=== PATIENT | female | born 1950 | race Caucasian/White ===

== ENCOUNTER 2018-07-04 11:08 | Outpatient (REF) | payer MEDICARE, OTHER, SELFPAY ==
[2018-07-04 12:36] LABS: HCT 44.5 % (36.0-46.0); HGB 14.8 g/dL (12.0-15.5); Mean Corp. HGB Concentration 33.3 g/dL (32.0-36.0); Mean Corpuscular Hemoglobin 30.1 pg (27.0-33.0); Mean Corpuscular Volume 90.4 fL (80-95); Mean Platelet Volume 9.1 fL (8.0-11.0); Platelet Count 296 x1000/uL (130-400); RBC 4.92 m/cumm (4.00-5.20); RBC Distribution Width 13.4 % (11.7-14.6); White Blood Cell Count 5.98 k/cumm (4.4-10.8)
[2018-07-04 13:11] LABS: Hemoglobin A1C 5.7 % (4.5-6.2)
[2018-07-04 13:38] LABS: ALT 25 U/L (12-78); AST 16 U/L (15-37); Albumin 3.9 g/dL (3.4-5.0); Alkaline Phosphatase 89 U/L (46-116); Anion Gap 8.6 mmol/L (3-11); BUN 14 mg/dL (7-18); CO2 28.4 mmol/L (21.0-32.0); CREATININE 0.63 mg/dL (0.55-1.02); Calcium 8.9 mg/dL (8.5-10.1); Chloride 106 mmol/L (98-107); Cholesterol 148 mg/dL (50-200); Glucose 101 mg/dL (70-100); HDL Cholesterol 63 mg/dL (40-60); LDL CHOLESTEROL 76 mg/dL (<100); Sodium 143 mmol/L (136-145); Total Protein 6.7 g/dL (6.4-8.2); Triglyceride 56 mg/dL (30-150); Vitamin B12 415 pg/mL (193-986)
== END 2018-07-04 11:28 ==
LOC: NCHCN 11:08
PROVIDERS: PCP Nurse Practitioner Family; Visit Provider Family Medicine
DX: R73.9 Hyperglycemia, unspecified (principal); K21.9 Gastro-esophageal reflux disease without esophagitis; E55.9 Vitamin D deficiency, unspecified; E78.5 Hyperlipidemia, unspecified
CPT/HCPCS: 80053; 80061; 83721; 85027; 82607; 83036

== ENCOUNTER 2018-07-12 00:51 | Outpatient (CLI) | payer MEDICARE, OTHER, SELFPAY ==
--- NOTE | 2018-07-12 11:15 | DI.MAMMO_ITS ---
SYMPTOMS/DIAGNOSIS: SCREENING, Z12.31 MAMMOGRAM: Mammograms were interpreted according to the usual protocol including computer analysis with CAD system, tomosynthesis and C view imaging. The breasts are of moderate density with fairly symmetrical distribution of fibroglandular tissue. No dominant mass or clumped microcalcification is identified in either breast. Current examination is compared with the previous examinations including April 2016 and there has been no gross interval change in appearance in comparison with the previous studies. CONCLUSION: No specific evidence of malignancy at this time. Routine screening examinations are suggested at yearly intervals in this age group according to the ACS/ACR guidelines. Category 1, breast density category B. MQSA ASSESSMENT OF FINDINGS: Negative. Category 1. Patient will receive a letter notifying them of these results. BI-RADS category B. There are scattered areas of fibroglandular density.
== END 2018-07-12 01:11 ==
PROVIDERS: PCP Nurse Practitioner Family; Visit Provider Family Medicine
DX: Z12.31 Encounter for screening mammogram for malignant neoplasm of breast (principal)
CPT/HCPCS: 77063; 77067

== ENCOUNTER 2019-05-15 10:55 | Outpatient (REF) | payer MEDICARE, OTHER, SELFPAY ==
[2019-05-15 13:22] LABS: ALT 28 U/L (14-59); AST 16 U/L (15-37); Albumin 3.8 g/dL (3.4-5.0); Alkaline Phosphatase 94 U/L (46-116); Anion Gap 11.1 mmol/L (3-11); BUN 15 mg/dL (7-18); Bilirubin, Total 1.1 mg/dL (0.2-1.0); CO2 24.9 mmol/L (21.0-32.0); CREATININE 0.64 mg/dL (0.55-1.02); Calcium 8.8 mg/dL (8.5-10.1); Calculated LDL 71 mg/dL; Chloride 108 mmol/L (98-107); Cholesterol 153 mg/dL (50-200); Glucose 107 mg/dL (70-100); HDL Cholesterol 66 mg/dL (40-60); Potassium 4.3 mmol/L (3.5-5.1); Sodium 144 mmol/L (136-145); Total Protein 6.7 g/dL (6.4-8.2); Triglyceride 80 mg/dL (30-150)
[2019-05-15 14:31] LABS: Hemoglobin A1C 5.9 % (4.5-6.2)
== END 2019-05-15 11:15 ==
LOC: NCHCN 10:55
PROVIDERS: PCP Nurse Practitioner Family; Visit Provider Family Medicine
DX: E78.5 Hyperlipidemia, unspecified (principal); R73.9 Hyperglycemia, unspecified; M85.80 Other specified disorders of bone density and structure, unspecified site
CPT/HCPCS: 80053; 80061; 83036

== ENCOUNTER 2020-02-06 09:44 | Outpatient (REF) | payer MEDICARE, OTHER, SELFPAY ==
[2020-02-06 21:40] LABS: Glucose 115 mg/dL (74-106)
[2020-02-06 21:50] LABS: Hemoglobin A1C 5.8 % (3.8-5.6)
[2020-02-08 04:55] LABS: Vitamin D 25 Total 74.5 ng/ml (30-100)
== END 2020-02-06 10:04 ==
LOC: NCHCN 09:44
PROVIDERS: PCP Nurse Practitioner Family; Visit Provider Family Medicine
DX: R73.03 Prediabetes (principal); E55.9 Vitamin D deficiency, unspecified
CPT/HCPCS: 82306; 82947; 83036

== ENCOUNTER 2020-02-12 00:45 | Outpatient (CLI) | payer MEDICARE, OTHER, SELFPAY ==
--- NOTE | 2020-02-12 15:48 | DI.MAMMO_ITS ---
EXAM: MG MAMMO SCREENING CLINICAL HISTORY: SCREENING, Z12.31 TECHNIQUE: Bilateral full field digital CC and MLO mammographic images were obtained with 3D tomosyn thesis and utilizing computer aided detection (CAD). COMPARISON: Available for comparison. FINDINGS: Masses/Architectural Distortion: None seen. Microcalcifications: No suspicious pleomorphic-type are seen. Skin Thickening/Nipple Retraction: None. IMPRESSION: 1. No significant interval change with no specific features of malignancy noted. 2. Unless there is more urgent need, screening mammography is recommended, as per [employer] guidelines. BI-RADS Category 1 - Negative Breast Density - Category B - Scattered areas of fibroglandular density A negative radiographic report should not delay biopsy if a dominant or clinically suspicious mass is present. Up to ten percent of cancers are not identified on mammography. A negative report may reinforce clinical impression. Adenosis and dense breasts may obscure an underlying neoplasm. False positive reports average 6 to 10%. Patient will receive a letter notifying them of these results.
== END 2020-02-12 01:05 ==
PROVIDERS: PCP Family Medicine; Visit Provider Family Medicine
DX: Z12.31 Encounter for screening mammogram for malignant neoplasm of breast (principal)
CPT/HCPCS: 77063; 77067

== ENCOUNTER 2020-05-27 07:27 | Outpatient (CLI) | payer MEDICARE, OTHER, SELFPAY ==
[2020-05-28 12:26] LABS: COVID-19 RT-PCR Result NEGATIVE (Negative)
== END 2020-05-27 07:47 ==
PROVIDERS: PCP Family Medicine; Visit Provider Ophthalmology Ophthalmic Plastic and Reconstructive Surgery
DX: Z11.59 Encounter for screening for other viral diseases (principal); Z01.818 Encounter for other preprocedural examination
CPT/HCPCS: U0003

== ENCOUNTER 2021-01-16 17:09 | Outpatient (REF) | payer MEDICARE, OTHER, SELFPAY ==
[2021-01-16 21:30] LABS: Hemoglobin A1C 5.9 % (<5.7)
[2021-01-16 21:51] LABS: ALT 31 U/L (14-59); AST 15 U/L (15-37); Albumin 3.8 g/dL (3.4-5.0); Alkaline Phosphatase 103 U/L (46-116); BUN 23 mg/dL (7-18); Bilirubin, Total 0.8 mg/dL (0.2-1.0); CREATININE 0.6 mg/dL (0.55-1.02); Calcium 9.3 mg/dL (8.5-10.1); Calculated LDL 81 mg/dL (<100); Chloride 106 mmol/L (98-107); Cholesterol 176 mg/dL (<200); Glucose 106 mg/dL (74-106); HDL Cholesterol 60 mg/dL (40-60); Potassium 4.3 mmol/L (3.5-5.1); Sodium 142 mmol/L (136-145); Total Protein 6.7 g/dL (6.4-8.2); Triglyceride 178 mg/dL (<150)
[2021-01-16 21:55] LABS: Vitamin D 25 Total 82.8 ng/mL (30-100)
== END 2021-01-16 17:10 | disposition home or self-care (01) ==
LOC: NCHCN 17:09
PROVIDERS: PCP Family Medicine; Visit Provider Family Medicine
DX: R73.03 Prediabetes (principal); M85.80 Other specified disorders of bone density and structure, unspecified site; E78.89 Other lipoprotein metabolism disorders
CPT/HCPCS: 80053; 80061; 82306; 83036

== ENCOUNTER 2021-05-01 01:39 | Outpatient (CLI) | payer MEDICARE, OTHER, SELFPAY ==
--- NOTE | 2021-05-01 | DI.DEXA_ITS ---
Exam(s) XR DEXA BONE DENSITY W/WO ELENI EXAM: XR DEXA BONE DENSITY W/WO ELENI CLINICAL HISTORY: OSTEOPENIA,M85.88,DISORDER OF BONE DENSITY,SCREENING FOR OSTEOPOROSIS TECHNIQUE: Routine DEXA evaluation of the lumbar spine, hip, or forearm. COMPARISON: Prior DEXA scan April 2016 FINDINGS: Performed on a HoloMicro[employer] unit. Lateral image: No compression fracture evident. Lumbar Spine total T-score: -1.6 . Prior 2016 reading was -1.8 Hip total T-score:-1.4. Prior 2016 reading was -0.4. Independent reading at the femoral neck level yields a T-score of -1.3 Forearm total T-score: -1.7 IMPRESSION: Bone mineral density measures in the osteopenia range. Fracture risk is moderate. Note: Any spine fracture indicates 5x risk for subsequent spine fracture and 2x risk for subsequent h ip fracture. World Health Organization criteria for BMD interpretation classify patients: Normal...... T- Score at or above -1.0 Osteopenic... T- Score between -1.0 and -2.5 Osteoporosis... T-Score at or below -2.5
== END 2021-05-01 01:59 ==
PROVIDERS: PCP Family Medicine; Visit Provider Family Medicine
DX: M85.89 Other specified disorders of bone density and structure, multiple sites (principal); R15.9 Full incontinence of feces
CPT/HCPCS: 77080; 99202

== ENCOUNTER 2022-01-16 16:27 | Outpatient (REF) | payer MEDICARE, OTHER, SELFPAY ==
[2022-01-16 14:47] LABS: Hemoglobin A1C 6.1 % (<5.7)
[2022-01-16 14:55] LABS: ALT 25 U/L (14-59); AST 15 U/L (15-37); Alkaline Phosphatase 101 U/L (46-116); Anion Gap 9.3 mmol/L (3-11); BUN 17 mg/dL (7-18); Bilirubin, Total 0.8 mg/dL (0.2-1.0); CO2 26.7 mmol/L (21.0-32.0); CREATININE 0.7 mg/dL (0.55-1.02); Calculated LDL 86 mg/dL (<100); Chloride 107 mmol/L (98-107); Cholesterol 163 mg/dL (<200); Glucose 112 mg/dL (74-106); HDL Cholesterol 60 mg/dL (40-60); Potassium 4.3 mmol/L (3.5-5.1); Sodium 143 mmol/L (136-145); Triglyceride 85 mg/dL (<150)
== END 2022-01-16 16:28 | disposition home or self-care (01) ==
LOC: NCHCN 16:27
PROVIDERS: PCP Family Medicine; Visit Provider Family Medicine
DX: R73.03 Prediabetes (principal); E78.5 Hyperlipidemia, unspecified
CPT/HCPCS: 80053; 80061; 83036

== ENCOUNTER → 2022-03-23 01:12 | Outpatient (CLI) | payer MEDICARE, OTHER, SELFPAY ==
--- NOTE | 2022-03-23 | DI.MAMMO_ITS ---
Exam(s) MAMMO SCREENING EXAM: MAMMO SCREENING CLINICAL HISTORY: SCREENING, Z12.31 TECHNIQUE: Mammograms were interpreted according to the usual protocol including computer analysis w [employer] CAD system, tomosynthesis and C-view imaging. COMPARISON: FINDINGS: The breasts are of moderate density with fairly symmetrical distribution of fibroglandular tissue. N o dominant mass or clumped microcalcification is identified in either breast. The current examinatio n is compared with previous examinations including January 2020 and there has been no gross interval marguerite nge in appearance in comparison with the prior studies. IMPRESSION: No specific evidence of malignancy at this time. Routine screening examinations are suggested at yea rly intervals in this age group according to the ACS ACR guidelines. BI-RADS Category 1 - Negative Breast Density - Category B - Scattered areas of fibroglandular density
== END ==
PROVIDERS: PCP Family Medicine; Visit Provider Family Medicine
DX: Z12.31 Encounter for screening mammogram for malignant neoplasm of breast (principal)
CPT/HCPCS: 77063; 77067

== ENCOUNTER 2022-06-05 15:01 | Outpatient (REF) | payer MEDICARE, OTHER, SELFPAY ==
[2022-06-05 16:04] LABS: Glucose 113 mg/dL (74-106)
[2022-06-05 16:10] LABS: Hemoglobin A1C 6.1 % (<5.7)
== END 2022-06-05 15:02 | disposition home or self-care (01) ==
LOC: NCHCN 15:01
PROVIDERS: PCP Family Medicine; Visit Provider Family Medicine
DX: R73.03 Prediabetes (principal)
CPT/HCPCS: 82947; 83036

== ENCOUNTER → 2022-06-15 13:00 | Outpatient (BNVA) | payer MEDICARE, OTHER, SELFPAY | PROVIDERS: PCP Family Medicine; Referring Provider Family Medicine; Visit Provider Surgery | DX: Z12.11 Encounter for screening for malignant neoplasm of colon (principal) ==

== ENCOUNTER 2022-06-25 08:13 | Day surgery (SDC) | payer MEDICARE, OTHER, SELFPAY ==
--- NOTE | 2022-06-24 20:46 | W.PM.DSUDISC ---
Date of service: 06/25/22 Time of Service: 10:30 Discharge Plan Disposition Patient Disposition: HOME Condition: Good Discharge Details Reason For Visit: Screening colonoscopy Attending Provider: Rk Biswas Primary Care Provider: Zee Card Home Meds and New Rx's Prescriptions: Continued acetaminophen [Tylenol] 325 mg capsule 325 mg PO PRN PRN ibuprofen [Advil] 200 mg tablet 200 mg PO Q6H PRN calcium carb and citrate-vitD3 1 EACH tablet extended release 1 ea PO DAILY cholecalciferol (vitamin D3) [Vitamin D3] 2,000 UNIT capsule 2,000 unit PO DAILY diphenhydramine HCl [Benadryl] 25 mg capsule 25 mg PO QHS PRN loperamide [Anti-Diarrheal (loperamide)] 2 mg capsule 4 mg PO DAILY PRN glucosamine HCl 750 mg tablet 750 mg PO DAILY Rx Instructions: administer with a meal alprazolam 0.5 mg tablet 0.5 mg PO QHS PRN timolol maleate 0.25 % drops 1 drp ophthalmic (eye) BID atorvastatin [Lipitor] 10 MG tablet 10 mg PO DAILY timolol maleate 0.25 % drops 1 drp OU BID Discontinued bisacodyl [Dulcolax (bisacodyl)] 5 mg tablet,delayed release (DR/EC) 5 mg PO ONCE Qty: 4 0RF Rx Instructions: Take according to provider's instructions for colonoscopy prep. polyethylene glycol 3350 17 gram/dose powder 17 g PO ONCE Qty: 238 0RF Rx Instructions: To be taken as directed by prescriber's office for colonoscopy prep. Discharge Instructions Additional Instructions: 1. If tolerated, consume a soft, low fiber diet for 1-2 days. 2[address] Do not drive, drink alcohol, operate machinery, make critical decisions, or do activities that require coordination or balance for 24 hours. 3. Because air was put into your colon during the procedure, expelling air from your rectum (passing gas or farting) is normal. 4. You may not have a bowel movement for 1-3 days because of the colonoscopy prep. This is normal. 5. Go directly to the emergency room if you notice any of the following: Develop chills (warm to touch), or if you have a thermometer and your temperature is above 101 Difficulty breathing or difficultly swallowing Persistent vomiting Severe abdominal pain, other than gas cramps Severe chest pain Black, tarry stools Any bleeding ? exceeding one tablespoon 6. Call your physician if the site where your intravenous was started becomes red, swollen, painful, and warm to touch. 7. Your physician has reviewed your pre-procedure medications. Please continue to take those medications as previously ordered. You will be given specific information/education regarding any changes to your medications before leaving. Activity:: Activity as Tolerated Diet:: As Tolerated Discharge Orders Discharge Orders: Discharge Order (Routine); Ordered 06/24/22 Ordered By: Rk Biswas
--- NOTE | 2022-06-24 20:47 | W.COLOREPORT ---
Date of service: 06/25/22 Time of Service: 09:44 Colonoscopy Report Date of procedure: 06/25/22 Pre-op diagnosis general: screening colonoscopy for routine health maintenance Post-op diagnosis procedure note: other (Diverticulosis) Procedure: screening colonoscopy Surgeon: Rk Biswas Anesthesia Type: General:No Airway Estimated blood loss (mL): 0 Pathology: none sent Complications: None Disposition: same day Indications: Kelly is a 72-year-old woman following up for screening colonoscopy. Prep: Miralax/Dulcolax Procedure Start Time: :21 Procedure End Time: :41 Retraction Time: 14 Findings: sigmoid diverticulosis Procedure Description: After the induction of monitored anesthetic care, and with the patient in left lateral decubitus position, I began by performing an external anorectal exam.? Perineum and skin were normal, as was the anal verge.? There was no evidence of external hemorrhoids.? Next, I performed a digital rectal exam.? I did not appreciate any abnormal findings.? Next, I advanced a colonoscope into the rectal vault.? I performed retroflexion.? Using insufflation, I then advanced the colonoscope beyond the rectal folds and into the sigmoid colon before advancing towards the cecum.? The quality of the prep was excellent.? There was moderate sigmoid diverticulosis. The scope was noted to be in the cecum by identification of the ileocecal valve and appendiceal orifice.? I then began withdrawing the colonoscope using repeated irrigation as necessary for full evaluation of the colonic mucosa. ?Once the scope was withdrawn to the level of the rectum, great care was taken to examine portions of the rectal folds.? Finally, the scope was withdrawn and the patient was brought to the same-day surgery recovery unit as the anesthetic wore off. ?The findings and instructions were shared with the patient prior to discharge.
[2022-06-25 08:36] VITALS: BP 118/61; PULSE 62; RESP 15; TEMP 36.3; O2SAT 97
[2022-06-25] MEDS: Lactated Ringers 1,000 ML 80 ML IV (08:50)
--- NOTE | 2022-06-25 09:03 | W.ANESPRE ---
General Info Date of Service Date Performed: 06/25/22 Height: 5 ft Weight: 54.2 kg Body Mass Index (BMI): 23.3 Surgical Procedure: Operation Date: 06/25/22 09:35 Proposed Procedure Side Surgeon derek Biswas MD Meds Allergies and Home Medications Allergies Allergy/AdvReac Type Severity Reaction Status Date / Time levofloxacin [From Levaquin] Allergy Mild GI upset Unverified 06/25/22 08:29 Sulfa (Sulfonamide Allergy Unknown Verified 06/25/22 08:29 Antibiotics) fluoxetine [From Prozac] AdvReac Unknown did not Verified 06/25/22 08:29 feel well per pt sertraline [From Zoloft] AdvReac Unknown did not Verified 06/25/22 08:29 feel well per pt Home Medication Medication Instructions Recorded atorvastatin 10 mg tablet (Lipitor) 10 mg PO DAILY 05/13/13 calcium carb,cit ER 600 mg-vit D3 1 ea PO DAILY 03/28/14 12.5 mcg (500 unit) tablet,ext.rel cholecalciferol (vitamin D3) 50 2,000 unit PO DAILY 05/05/16 mcg (2,000 unit) capsule (Vitamin D3) diphenhydramine HCl 25 mg capsule 25 mg PO QHS PRN 01/28/21 (Benadryl) glucosamine HCl 750 mg tablet 750 mg PO DAILY 01/28/21 loperamide 2 mg capsule 4 mg PO DAILY PRN 01/28/21 (Anti-Diarrheal (loperamide)) alprazolam 0.5 mg tablet 0.5 mg PO QHS PRN 03/30/22 timolol maleate 0.25 % eye drops 1 drp ophthalmic (eye) BID 03/30/22 acetaminophen 325 mg capsule 325 mg PO PRN PRN 06/15/22 (Tylenol) ibuprofen 200 mg tablet (Advil) 200 mg PO Q6H PRN 06/15/22 timolol maleate 0.25 % eye drops 1 drp OU BID 06/15/22 Current Visit Medications: Current Medications Generic Name Dose Route Start Last Admin Trade Name Freq PRN Reason Stop Dose Admin Hyoscyamine Sulfate 0.125 mg 06/24/22 20:48 Hyoscyamine 0.125 Mg Sl/Oral/Chew SL DIRECTED PRN Ringer's Solution 1,000 mls @ 80 mls/hr 06/25/22 06:00 06/25/22 08:50 IV 07/24/22 23:59 80 mls/hr INFUSION ZACH Administration IV Miscellaneous Supplies 1 each 06/25/22 06:00 Iv Access IV 07/24/22 23:59 DIRECTED ZACH Ondansetron HCl 4 mg 06/24/22 20:48 Ondansetron 4 Mg/2 Ml Vial IVP Q4H PRN PRN Nausea / Vomiting Sodium Chloride 0 ml 06/25/22 06:00 Normal Saline Flush 10 Ml Syr IV 07/24/22 23:59 PRN PRN Sodium Chloride 0 ml 06/25/22 06:00 Normal Saline 10 Ml Vial IJ 07/24/22 23:59 DIRECTED PRN Sterile Water 0 ml 06/25/22 06:00 Water,Injection,Sterile 10 Ml Vial IJ 07/24/22 23:59 DIRECTED PRN PFSH Active Problems Active Problems: Problem Status Onset Code 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 Chronic diarrhea K52.9 Fecal incontinence R15.9 Glaucoma H40.9 Anxiety F41.9 Sensory hearing loss, 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 Vitamin D deficiency E55.9 Prediabetes R73.03 Right knee pain M25.561 Screening for colon cancer Z12.11 Elevated lipids E78.5 Medical History Medical History Abnormal Pap smear of cervix Hyperlipidemia Osteopenia Surgical History Surgical History cryo Fracture, Open Treatment femur, wrist History of blepharoplasty Repair of umbilical hernia Tobacco Smoking/Tobacco Use Status: Never Alcohol Alcohol Intake: never Substance Use Substance use: Never Substance use type: does not use Prental History History 3 Para 3 Hx # Term Pregnancies Multiple births Hx # Pregnancies Ectopic pregnancies AB induced Hx Number of Living Children AB spontaneous Vital Signs and Lab Results Vital Signs Most Recent Vital Signs in EMR: Most Recent Vital Signs Temp Pulse Resp BP Pulse Ox 36.3 C L 62 15 118/61 97 06/25/22 08:36 06/25/22 08:36 06/25/22 08:36 06/25/22 08:36 06/25/22 08:36 Lab Results Blood Type / Crossmatch: No Data to Display Complete Blood Count: No Data to Display Complete Metabolic Panel: Glucose 113 mg/dL (74-106) H 06/05/22 08:00 Hemoglobin A1c 6.1 % (<5.7) H 06/05/22 08:00 Liver Function Panel: No Data to Display Coagulation Panel: No Data to Display Cardiac Panel: No Data to Display Arterial Blood Gas: No Data to Display Venous Blood Gas: No Data to Display Pancreas Panel: No Data to Display Thyroid Panel: No Data to Display Infectious Disease: No Data to Display Blood Cultures: No Data to Display Toxicology Panel: No Data to Display Anesthesia Assessment and Plan Anesthesia History Personal History: No History of Anesthesia Complications Family History: No Family History of Anesthesia Complications Exercise Tolerance Exercise Tolerance: Metabolic Equivalents>4 Pertinent Negatives Pertinent Negatives: No Symptoms of GERD, No Major Cardiovascular Symptoms or Complaints, No Major Pulmonary Symptoms or Complaints and No History of CVA/TIA Cardiac & Pulmonary Exam Cardiac Exam: Normal S1/S2 Heart Sounds Pulmonary Exam: Clear Bilateral Breath Sounds Implantable Cardiac Device Does patient have a Pacemaker or an ICD?: No Airway Exam Known Difficult Airway: No Mallampati Class: 2 Mouth Opening: Normal (> 3cm) Thyromental Distance: Greater than 3 cm Neck Range of Motion: Full ROM Neck Circumference: Normal Teeth Condition: Normal Dentition ASA Classification ASA Score: ASA 2 Emergency Case?: No NPO Status NPO Status: NPO Clears >2 hours, Solids >8 hours Anesthesia Plan Resuscitation Status: Full Code Anesthesia Technique: General Anesthesia Airway Planned: Natural Airway Monitors Used: Standard Monitors
[2022-06-25 09:12] VITALS: BMI 23.3
[2022-06-25 09:48] VITALS: BP 96/67; PULSE 75; RESP 16; TEMP 36.2; O2SAT 94
[2022-06-25 10:18] VITALS: BP 106/72; PULSE 73; RESP 18; TEMP 36.2; O2SAT 94
--- NOTE | 2022-06-25 10:34 | W.ANESPOSTOP ---
Postoperative Evaluation Date, Time and Location Date Performed: 06/25/22 Time Performed: 09:48 Patient Location: Day Surgery Unit Vital Signs Most Recent Imported Vital Signs: Most Recent Vital Signs Temp Pulse Resp BP Pulse Ox 36.2 C L 75 16 96/67 L 94 06/25/22 09:48 06/25/22 09:48 06/25/22 09:48 06/25/22 09:48 06/25/22 09:48 Pain Score Most Recent Pain Score: Most Recent Pain Score Pain Level 0 06/25/22 09:48 Assessment Mental Status: Awake (Alert & Oriented to Patient Baseline) Airway and Respiratory Function: Patent airway with normal (patient baseline) respiratory exam Cardiovascular Function: Hemodynamically Stable Hydration Status: Adequately Hydrated Nausea & Vomiting: No Nausea or Vomiting Pain: Pt. Denies Any Pain Peripheral Nerve Block: Patient did not receive a nerve block
== END 2022-06-25 10:45 | disposition home or self-care (01) ==
PROVIDERS: PCP Family Medicine; Visit Provider Surgery
PROC: 0DJD8ZZ Inspection of Lower Intestinal Tract, Via Natural or Artificial Opening Endoscopic (ICD-10-PCS; CPT 45378; principal; 2022-06-25 09:30)
DX: Z12.11 Encounter for screening for malignant neoplasm of colon (principal); K57.30 Diverticulosis of large intestine without perforation or abscess without bleeding
CPT/HCPCS: G0121

== ENCOUNTER 2023-01-27 15:28 | Outpatient (REF) | payer MEDICARE, SELFPAY | END 2023-01-27 15:29 | disposition home or self-care (01) | LOC: NCHCN 15:28 | PROVIDERS: PCP Family Medicine; Visit Provider Family Medicine | DX: R30.9 Painful micturition, unspecified (principal) | CPT/HCPCS: 87077; 87086; 87186 ==

== ENCOUNTER 2023-02-08 13:43 | Outpatient (REF) | payer MEDICARE, SELFPAY | END 2023-02-08 13:44 | disposition home or self-care (01) | LOC: NCHCN 13:43 | PROVIDERS: PCP Family Medicine; Visit Provider Family Medicine | DX: R30.9 Painful micturition, unspecified (principal) | CPT/HCPCS: 87086 ==

== ENCOUNTER 2023-03-10 12:31 | Outpatient (REF) | payer MEDICARE, SELFPAY | END 2023-03-10 12:32 | disposition home or self-care (01) | LOC: NCHCN 12:31 | PROVIDERS: PCP Family Medicine; Visit Provider Family Medicine | DX: R30.9 Painful micturition, unspecified (principal); R32 Unspecified urinary incontinence | CPT/HCPCS: 87086 ==

== ENCOUNTER 2024-02-07 09:59 | Outpatient (REF) | payer MEDICARE, OTHER, SELFPAY ==
[2024-02-07 15:20] LABS: Hemoglobin A1C 5.9 % (<5.7)
[2024-02-07 15:33] LABS: ALT 21 U/L (14-59); AST 18 U/L (15-37); Alkaline Phosphatase 99 U/L (46-116); Anion Gap 9.2 mmol/L (3-11); BUN 17 mg/dL (7-18); Bilirubin, Total 0.8 mg/dL (0.2-1.0); CO2 26.8 mmol/L (21.0-32.0); CREATININE 0.7 mg/dL (0.55-1.02); Calcium 9.2 mg/dL (8.5-10.1); Calculated LDL 94 mg/dL (<100); Chloride 108 mmol/L (98-107); Cholesterol 190 mg/dL (<200); Estimated GFR 90.14 (mL/min/1.73m2); Glucose 120 mg/dL (74-106); HDL Cholesterol 70 mg/dL (40-60); Potassium 4.3 mmol/L (3.5-5.1); Sodium 144 mmol/L (136-145); Total Protein 6.9 g/dL (6.4-8.2); Triglyceride 132 mg/dL (<150); Vitamin D 25 Total 68.6 ng/mL (30-100)
== END 2024-02-07 10:00 | disposition home or self-care (01) ==
LOC: NCHCN 09:59
PROVIDERS: PCP Family Medicine; Visit Provider Family Medicine
DX: E78.5 Hyperlipidemia, unspecified (principal); R73.03 Prediabetes; M85.89 Other specified disorders of bone density and structure, multiple sites
CPT/HCPCS: 80053; 80061; 82306; 83036

== ENCOUNTER → 2024-02-21 02:57 | Outpatient (CLI) | payer MEDICARE, OTHER, SELFPAY ==
--- NOTE | 2024-02-21 | DI.MAMMO_ITS ---
Exam(s) MAMMO SCREENING EXAM: MAMMO SCREENING CLINICAL HISTORY: Z12.31 Screening mammogram. TECHNIQUE: Bilateral full field digital CC and MLO mammographic images were obtained with 3D tomosyn thesis and utilizing computer aided detection (CAD). COMPARISON: Prior mammograms were reviewed. FINDINGS: There has been no significant change in the appearance and distribution of the fibroglandular tissue. There are no CAD designations. There are no new spiculated masses nor malignant appearing microcalcification groups. Asymmetric nodular density in the right breast located 3 cm in from the nipple on the MLO view is unc hanged from 2014 and therefore benign. There is no significant architectural distortion nor skin thickening-retraction. IMPRESSION: Stable benign findings. No radiographic evidence of malignancy. BI-RADS Category 2 - Benign Findings Breast Density - Category B - Scattered areas of fibroglandular density Breast density Category C or D implies that the patient has dense breast tissue. Dense breast tissue can make it harder to find cancer on a mammogram. Dense breast tissue is also associated with an incr eased risk of breast cancer. This information about the result of the mammogram report was provided to the patient to raise their awareness. Use this report when you speak with the patient about their risks for breast cancer, which includes their family history. At that time, you may recommend additional screening tests (Ultrasoun d or MRI) as these tests may add significant information. A negative radiographic report should not delay biopsy if a dominant or clinically suspicious mass is present. Up to ten percent of cancers are not identified on mammography. A negative report may reinforce clinical impression. Adenosis and dense breasts may obscure an underlying neoplasm. False positive reports average 6 to 10%. Patient will receive a letter notifying them of these results.
--- NOTE | 2024-02-21 | DI.DEXA_ITS ---
Exam(s) XR DEXA BONE DENSITY W/WO ELENI EXAM: XR DEXA BONE DENSITY W/WO ELENI CLINICAL HISTORY: M85.88 disorders of bone density and structure TECHNIQUE: COMPARISON: CR XR DEXA BONE DENSITY W/WO ELENI from 05/01/2021 FINDINGS: Lateral Spine Image: Unremarkable. No compression deformities identified. Right hip: Total T-Score: -1.0. This compares to -1.4 on the prior examination. Total Z-Score: 0.8 T- and Z-scores: Within normal limits. No evidence of osteoporosis. Lumbar Spine: Total T-Score: -1.4. This compares to -1.6 on the prior examination. Total Z-Score: 1.0 T- and Z-scores: Findings are consistent with osteopenia. There is no evidence of osteoporosis. IMPRESSION: No evidence of osteoporosis.
== END ==
PROVIDERS: PCP Family Medicine; Visit Provider Family Medicine
DX: M85.88 Other specified disorders of bone density and structure, other site (principal); Z12.31 Encounter for screening mammogram for malignant neoplasm of breast
CPT/HCPCS: 77063; 77067; 77080

== ENCOUNTER 2024-07-13 12:37 | Outpatient (REF) | payer MEDICARE, OTHER, SELFPAY ==
[2024-07-13 15:40] LABS: Hemoglobin A1C 5.9 % (<5.7)
== END 2024-07-13 12:38 | disposition home or self-care (01) ==
LOC: NCHCN 12:37
PROVIDERS: PCP Family Medicine; Visit Provider Family Medicine
DX: R73.03 Prediabetes (principal)
CPT/HCPCS: 83036

== ENCOUNTER 2025-01-11 09:53 | Outpatient (CLI) | payer MEDICARE, OTHER, SELFPAY | END 2025-01-11 09:54 | disposition home or self-care (01) | PROVIDERS: PCP Family Medicine; Visit Provider Family Medicine | DX: R00.2 Palpitations (principal) | CPT/HCPCS: 93246 ==

== ENCOUNTER 2025-02-01 07:49 | Outpatient (CLI) | payer MEDICARE, OTHER, SELFPAY ==
--- NOTE | 2025-02-01 08:43 | W.CARDEVENT ---
Date of service: 02/01/25 Time of Service: 08:44 Cardiac Event Recorder Referring Provider:: Zee Card Indications:: Palpitations Cardiac Event Note: This is a cardiac event monitor. Patient was monitored for 3 days and 16 hours. Predominant rhythm was sinus. Average heart rate was 66. Minimum was 47, maximum 126 There were occasional atrial premature beats, comprising 2% of total There were moderately frequent ventricular ectopy beats comprising 8% of total. A total of 6 self-limited atrial runs occurred. The longest of these 6 beats in duration. There was no atrial fibrillation, no high-grade AV block, no pauses greater than 3 seconds. No symptoms were reported
== END 2025-02-01 07:50 | disposition home or self-care (01) ==
LOC: CARDOPNVT 07:49
PROVIDERS: PCP Family Medicine; Visit Provider Internal Medicine Cardiovascular Disease
DX: R00.2 Palpitations (principal); I49.1 Atrial premature depolarization
CPT/HCPCS: 93248

== ENCOUNTER 2025-02-14 11:51 | Outpatient (REF) | payer MEDICARE, OTHER, SELFPAY ==
[2025-02-14 15:29] LABS: ALT 28 U/L (14-59); AST 18 U/L (15-37); Albumin 3.9 g/dL (3.4-5.0); Alkaline Phosphatase 126 U/L (46-116); Anion Gap 10.3 mmol/L (3-11); BUN 18 mg/dL (7-18); Bilirubin, Total 0.4 mg/dL (0.2-1.0); CO2 25.7 mmol/L (21.0-32.0); CREATININE 0.8 mg/dL (0.55-1.02); Calcium 9.2 mg/dL (8.5-10.1); Calculated LDL 140 mg/dL (<100); Chloride 105 mmol/L (98-107); Cholesterol 224 mg/dL (<200); Estimated GFR 76.31 (mL/min/1.73m2); Glucose 101 mg/dL (74-106); HDL Cholesterol 56 mg/dL (>or=50); Potassium 4.6 mmol/L (3.5-5.1); Sodium 141 mmol/L (136-145); Total Protein 6.8 g/dL (6.4-8.2); Triglyceride 142 mg/dL (<150)
[2025-02-14 17:13] LABS: Creatine Kinase 51 U/L (26-192)
== END 2025-02-14 11:52 | disposition home or self-care (01) ==
LOC: NCHCN 11:51
PROVIDERS: PCP Family Medicine; Visit Provider Family Medicine
DX: Z13.220 Encounter for screening for lipoid disorders (principal); Z00.00 Encounter for general adult medical examination without abnormal findings
CPT/HCPCS: 80053; 80061; 82550; 85027

== ENCOUNTER 2025-02-21 22:00 | Outpatient (REF) | payer MEDICARE, OTHER, SELFPAY ==
[2025-02-21 14:37] LABS: HCT 43.1 % (36.0-46.0); HGB 14.3 g/dL (11.2-15.7); MCH 29.7 pg (27.0-33.0); MCHC 33.2 % (32.0-36.0); MCV 89 fL (80-95); MPV 9.2 fL (8.0-11.0); Platelet Count 322 10^3/uL (130-400); RBC 4.82 10^6/uL (3.93-5.22); RDW 12.8 % (11.7-14.6); RDW-SD 42.0 fL; WBC 10.56 10^3/uL (4.4-10.8)
== END 2025-02-21 22:01 | disposition home or self-care (01) ==
LOC: NCHCN 22:00
PROVIDERS: PCP Family Medicine; Visit Provider Family Medicine
DX: R53.83 Other fatigue (principal)
CPT/HCPCS: 85027

== ENCOUNTER 2025-05-10 04:10 | Outpatient (CLI) | payer MEDICARE, OTHER, SELFPAY ==
--- NOTE | 2025-05-10 | DI.NM_ITS ---
APPROVED REPORT Exam: Pharmacologic Patient Location: Out-Patient Room/Bed: Stress Nurse: Celia Lim RN Ordering Provider:MARLAAbrahan MOHAN, Contact Number: [phone] BMI: 23.99 Baseline Rhythm: Sinus Bradycardia Indications: Dyspnea on Exertion Medical History Medical History: Anxiety, GERD, depressed mood, chronic insomnia, HLD, prediabetes, syncope with collapse Cardiac Medications: Alprazolam, atorvastatin, benadryl, magnesium, meloxicam Allergies: Levaquin, sulfa, prozac, zoloft Cardiac Risk Factors: Family hx, HLD, prediabetes Previous Cardiac Procedures: None Pretest Chest Pain Characteristics: None Exercise History: Physically active Physical Disabilities: None Lung Sounds: Coarse expiratory wheeze bilateral mid-base Heart Sounds: Bradycardia Stress Test Details Test: Exercise stress converted to pharmacologic stress due to failure to obtain a diagnostic stress test. Reason for pharmacologic stress test: changed from exercise stress test due to inability to reach target heart rate. Nuclear Acquisition: Rest Tc-99m/Stress Tc-99m 1 day Rest Isotope: Tc-99m Sestamibi. Dose: 10.0 Date: 05/10/2025 Injection Time: 0930 Stress Isotope: Tc-99m Sestamibi. Dose: 30.0 Date: 05/10/2025 Injection Time: 1132 HR Resting HR Supine: 53 bpm Max Heart Rate (APMHR): 144 bpm Resting HR Standin bpm Target HR (85% APMHR): 122 bpm Max HR Achieved: 129 bpm % of APMHR: 90 Recovery HR: 82 bpm HR response to stress: Blunted HR response to stress BP Resting BP Supine: 130/70 mmHg Resting BP Standin/68 mmHg Max BP: 180/80 mmHg Recovery BP: 110/60 mmHg BP response to stress: Normal blood pressure response to stress. ECG Resting ECG: Sinus Bradycardia Stress ECG: Sinus Tachycardia ST Change: No significant ST segment changes noted Arrhythmia: Rare PAC's Recovery ECG: Sinus Rhythm Recovery ST Change: No significant ST segment changes noted Clinical Reason for Termination: Fatigue, Mod SOB Stress Symptoms: Fatigue, Mod SOB Exercise duration: 10 min29 sec Highest Stage Reached: Stage 3: 3.4 mph at 14% grade. Exercise capacity: 9.55 METs Angina Score: None Zacarias Treadmill Score: 9.7 Rate Pressure Product: 67584 Stress ECG Conclusion 1. Resting electrocardiogram was normal 2. Patient underwent testing using a combination of low-level exercise and pharmacologic stress with regadenoson 3. Peak heart rate achieved was 90% of maximal predicted heart rate at a workload of 10 METS 4. There was no electrocardiographic evidence of myocardial ischemia 5. See MPI report Zacarias Treadmill Score is 9.7 which is Low risk. Stress Test Summary STAGE Time (mins) Speed (mph) Grade (%) HR BP SpO2 SYMPTOMS METS Supine 53 130/70 93% Standing 63 120/68 1 3 1.7 10 96 150/64 90% Mild-mod SOB 4.5 2 6 2.5 12 115 154/70 91% Mod SOB 7 3 9 3.4 14 105 Mod SOB/ general fatigue 10 1 min post Lexiscan injection 92 180/80 93% Mod SOB 3 min post Lexiscan injection 81 120/60 96% SOB resolving 6 min post Lexiscan injection 82 110/60 96% All symptoms resolved. Patient noted to have coarse expiratory wheeze mid-base when LS auscultated. Patient denied SOB at rested and able to interactive pleasantly with staff without difficulty. Patients reports she will update PCP regarding wheeze. Patient transitioned from [place] protocol to walking dar protocol r/t mod sob and generalized fatigue. All symptoms resolved at test end and patient proceeded to imaging ambulatory in no apparent distress. MPI Conclusion Myocardial perfusion is normal. There is no ischemia or evidence of prior infarction Left ventricular function is hyperdynamic, EF greater than 60%
[2025-05-10] MEDS: Regadenoson 0.4 MG/5 ML SYR IVP (11:46)
== END 2025-05-10 04:30 ==
LOC: DI 04:10
PROVIDERS: PCP Family Medicine; Visit Provider Family Medicine
DX: R06.09 Other forms of dyspnea (principal)
CPT/HCPCS: 78452; 93016; 93018; 93017; J2785

== ENCOUNTER 2025-05-25 04:53 | Outpatient (CLI) | payer MEDICARE, OTHER, SELFPAY ==
[2025-05-25] MEDS: Levalbuterol HFA 15 GM INH 4 PUFF IH (14:34)
[2025-05-25] MEDS: Inhaler, Assist Device 1 EACH MC (14:34)
--- NOTE | 2025-05-28 12:16 | W.PFT ---
Date of service: 05/25/25 Time of Service: 13:06 Pulmonary Function Test Result Indications: Dyspnea Impression 1. Good patient effort was noted. ATS standards for reproducibility were met. 2. Spirometry showed mild obstructive lung disease with an FEV1 of 94% (1.64 L) 3. Following the administration of a bronchodilator there was not a significant response 4. TLC was normal. No evidence of restrictive lung disease 5. DLCO was normal at 86% predicted
== END 2025-05-25 04:54 | disposition home or self-care (01) ==
LOC: RT 04:53
PROVIDERS: PCP Family Medicine; Visit Provider Internal Medicine Pulmonary Disease
DX: R06.09 Other forms of dyspnea (principal); J44.9 Chronic obstructive pulmonary disease, unspecified
CPT/HCPCS: 94060; 94726; 94729

== ENCOUNTER 2025-06-11 16:34 | Outpatient (REF) | payer MEDICARE, SELFPAY ==
[2025-06-11 18:19] LABS: ALT 28 U/L (14-59); AST 20 U/L (15-37); Albumin 3.9 g/dL (3.4-5.0); Alkaline Phosphatase 106 U/L (46-116); Anion Gap 10.2 mmol/L (3-11); BUN 14 mg/dL (7-18); Bilirubin, Total 0.9 mg/dL (0.2-1.0); CO2 25.8 mmol/L (21.0-32.0); Calcium 9.0 mg/dL (8.5-10.1); Calculated LDL 91 mg/dL (<100); Chloride 106 mmol/L (98-107); Cholesterol 178 mg/dL (<200); Estimated GFR 89.02 (mL/min/1.73m2); Glucose 126 mg/dL (74-106); HDL Cholesterol 71 mg/dL (>or=50); Potassium 4.1 mmol/L (3.5-5.1); Sodium 142 mmol/L (136-145); Total Protein 6.9 g/dL (6.4-8.2); Triglyceride 83 mg/dL (<150)
[2025-06-11 18:20] LABS: Hemoglobin A1C 6.0 % (<5.7)
[2025-06-11 18:49] LABS: COMMENT (LAB VIEW ONLY) 69.39 mg/dL; Microalb ug/mg Crea 15.4 ug/mg Cr
== END 2025-06-11 16:35 | disposition home or self-care (01) ==
LOC: NCHCN 16:34
PROVIDERS: PCP Family Medicine; Visit Provider Family Medicine
DX: R73.03 Prediabetes (principal); R53.83 Other fatigue
CPT/HCPCS: 80053; 80061; 82043; 82570; 83036